=== PATIENT | male | born 1975 | race Two or more races ===

== ENCOUNTER 2016-12-26 01:42 | Emergency (ER) | payer SELFPAY ==
[~2016-12-26] VITALS: Ht 175.3 cm; Wt 66.3 kg
[2016-12-26] MEDS ORDERED: KETOROLAC TROMETH 60MG/2ML VIAL IM ONE (02:45)
[2016-12-26] MEDS ORDERED: HYDROcodone-ACET 10/325MG TAB PO ONE (02:45)
[2016-12-26 03:47] VITALS: BP 123/79
== END 2016-12-26 04:07 | disposition home or self-care (01) ==
LOC: ER 01:47
DX: M47.892 Other spondylosis, cervical region (principal)
CPT/HCPCS: 72125; 99284; J1885